=== PATIENT | male | born 1950 | race Two or more races ===

== ENCOUNTER 2021-05-29 07:17 | Emergency (ER) | payer MEDICARE, OTHER ==
[~2021-05-29] VITALS: Ht 170.2 cm; Wt 68.2 kg
[~2021-05-29 07:17] MED LIST: NO HOME MEDS; RISP2TAB85 PO; TRAZ-251 PO; gabapentin capsule PO
[2021-05-29] MEDS ORDERED: normal saline 1000ML IV soln IVB ONE ×2 (08:05→13:35)
[2021-05-29 08:22] LABS: BASOPHILS % (AUTO) 0.3 % (0-1); EOSINOPHILS # (AUTO) 0.1 X10'3 (0-0.9); EOSINOPHILS % (AUTO) 1.3 % (0-6); HEMATOCRIT 40.5 % (42.0-52.0); HEMOGLOBIN 13.8 g/dl (14.0-17.9); LYMPHOCYTES # (AUTO) 0.8 X10'3 (1.1-4.8); LYMPHOCYTES % (AUTO) 9.1 % (21-51); MEAN CORPUSCULAR HGB CONC 34.2 g/dL (33.0-36.5); MEAN CORPUSCULAR VOLUME 87.8 FL (78-98); MEAN PLATELET VOLUME 7.8 FL (7.4-10.4); MONOCYTES # (AUTO) 0.6 X10'3 (0-0.9); MONOCYTES % (AUTO) 6.4 % (2-12); NEUTROPHILS # (AUTO) 7.6 X10'3 (1.8-7.7); NEUTROPHILS % (AUTO) 82.9 % (42-75); PLATELET COUNT 235 X10'3 (140-440); RED BLOOD COUNT 4.61 X10'6 (4.70-6.10); RED CELL DISTRIBUTION WIDTH 15.2 % (11.5-14.5); WHITE BLOOD COUNT 9.1 X10'3 (4.5-11.0)
[2021-05-29 08:24] LABS: ALANINE AMINOTRANSFERASE 21 U/L (12-78); ALBUMIN 3.5 G/DL (3.4-5.0); ALKALINE PHOSPHATASE 104 IU/L (46-116); ANION GAP 9 (8-16); ASPARTATE AMINO TRANSFERASE 19 U/L (10-37); BILIRUBIN,TOTAL 0.7 MG/DL (0.1-1.0); BLOOD UREA NITROGEN 13 MG/DL (7-18); BUN/CREATININE RATIO 12.5 (5.4-32.0); CHLORIDE 108 MMOL/L (99-107); CREATININE 1.04 MG/DL (0.60-1.10); GLUCOSE 100 MG/DL (70-104); POTASSIUM 3.9 MMOL/L (3.5-5.1); SODIUM 144 MMOL/L (135-145); TOTAL CARBON DIOXIDE 26.9 MMOL/L (24-32); TOTAL PROTEIN 7.1 G/DL (6.4-8.2); eGFR 71 ML/MIN
--- NOTE | 2021-05-29 09:05 | NUR ---
pt pulled iv out. has been wandering. call for sitter made, but not here yet. Several redirect attempts performed since pt arrived. Pt responding to internal stimuli AEB talking/whispering when none present. When asked pt indicated there were poltergeists.
--- NOTE | 2021-05-29 09:20 | NUR ---
Several RN's attempted IVs; good flash, unable to advance cannula each time. BLOSSOM Dove notified. Will attempt IV at later time as pt is stating, "I knew you weren't going to get it. God [id number] me you shouldn't be putting that in me." Sitter due in shortly.
--- NOTE | 2021-05-29 12:30 | NUR ---
ALEXANDRA Barragan from [facility] [[email or web address] updated w/ pt status and POC.
--- NOTE | 2021-05-29 12:33 | NUR ---
[facility] CALLED FOR UPDATE, WILL CALL BACK IN 1.5 HRS
[2021-05-29 15:11] LABS: CLARITY,URINE CLEAR (Clear); COLOR,URINE YELLOW (Yellow); GLUCOSE, URINE NEGATIVE (Neg); KETONES,URINE NEGATIVE (Neg); LEUKOCYTE ESTERASE ,URINE NEGATIVE (Neg); NITRITES, URINE NEGATIVE (Neg); OCCULT BLOOD,URINE NEGATIVE (Neg); PH,URINE 6.5 (4.8-8.0); PROTEIN,URINE NEGATIVE (Neg); UROBILINOGEN,URINE 0.2 E.U/dL (0.2-1.0)
--- NOTE | 2021-05-29 15:11 | NUR ---
BLOSSOM Dove informed of orthostatic results.
[2021-05-29 15:12] LABS: UA COLLECTION TYPE VOIDED
[2021-05-29 17:25] VITALS: BP 100/63
--- NOTE | 2021-05-29 17:27 | NUR ---
Per [facility], if patient is being discharged back to facility he will need a copy of all labs,treatments,meds and medical cleance by MD faxed back to them at [phone]. He will also, need to come back to [facility] via medical transport.
== END 2021-05-30 00:53 | disposition home or self-care (01) ==
LOC: ER 07:17
DX: R55 Syncope and collapse (principal); F20.9 Schizophrenia, unspecified; E03.9 Hypothyroidism, unspecified; I95.9 Hypotension, unspecified; Z98.890 Other specified postprocedural states; Z79.899 Other long term (current) drug therapy; Z85.038 Personal history of other malignant neoplasm of large intestine
CPT/HCPCS: 36415; 80053; 81003; 85025; 93005; 96360; 96361; 99285; J7030